=== PATIENT | male | born 1990 | race African-American/Black ===

== ENCOUNTER 2017-01-18 21:12 | Emergency (ER) | payer SELFPAY ==
[~2017-01-18] VITALS: Ht 165.1 cm; Wt 72.3 kg
[~2017-01-18 21:12] MED LIST: AMOXICILLIN875 MG PO; BACTRIM,SEPT1 TABLET PO; CLOTRIMAZOLE10 MG PO; HYDROCODON-ACE1 EAC7 PO; IBUPROFEN800 MG PO; KEFLEX500 MG PO; PEPCID20 MG PO; PREDNISONE20 MG PO
[2017-01-18 21:14] VITALS: BP 124/80
== END 2017-01-18 22:08 | disposition home or self-care (01) ==
LOC: EME 21:12
DX: K12.0 Recurrent oral aphthae (principal); F17.200 Nicotine dependence, unspecified, uncomplicated
CPT/HCPCS: 99281; 99283